=== PATIENT | male | born 1980 | race Caucasian/White ===

== ENCOUNTER 2017-03-24 18:25 | Emergency (ER) | payer BC ==
[2017-03-24 18:33] VITALS: BP 126/77; PULSE 60; TEMP 98.1; BMI 23.7
--- NOTE | 2017-03-24 19:18 | PDOC ---
History of Present Illness - General History Source: Patient Exam Limitations: No Limitations - History of Present Illness Initial Comments: 03/24/17 19:42 The patient is a 36 year old male, with no significant past medical history who presents to the emergency department with RLQ pain and right thigh pain since this morning. He notes his pain often radiates from his back into his right thigh and into his right tesiticle. He denies any recent sores on his scrotum, discharge, or redness. He denies any recent fevers, chills, headache or dizziness. He denies any recent nausea, vomit, diarrhea or constipation. He denies any recent chest pain or shortness of breath. He denies any recent dysuria, frequency, urgency or hematuria. PAST MEDICAL HISTORY: See HPI PAST SURGICAL HISTORY: No significant history. FAMILY HISTORY: No pertinent history. SOCIAL HISTORY: Patient lives with family and is employed. MEDICATIONS: Reviewed. ALLERGIES: As per nursing notes. ROS General: No fevers or chills, no weakness, no weight loss HEENT: No change in vision. No sore throat. No ear pain CardioVascular: No chest pain or shortness of breath Respiratory:No cough, or wheezing. Gastrointestinal: +RLQ pain. No nausea, vomiting, diarrhea or constipation. No rectal bleeding Genitourinary: No dysuria, hematuria, or frequency Musculoskeletal: +back pain. No joint or muscle pain or swelling Neurologic: No headache, vertigo, dizziness or loss of consciousness Psychiatric: No depression Skin: No rashes or easy bruising Endocrine: no increased thirst or abnormal weight change Allergic: no skin or latex allergy All other systems reviewed and normal Exam: General: Well-nourished well-developed individual, no acute distress HEENT: Throat: Normal, tonsils normal, no erythema or exudate Neck: Supple, no meningeal signs, no lymphadenopathy Eyes: Pupils equal reactive and round, extraocular motion intact Chest: Nontender to palpation Cardiac: S1-S2 normal, regular rate and rhythm, no murmurs rubs or gallops Respiratory: Lungs clear to auscultation bilateral Abdomen: +Tenderness on palpation of the left lower flank area. No tenderness on palpation of RLQ or suprapubic area. Soft, normal bowel sounds, nontender to palpation diffusely : Circumcised male. No penile discharge or lesion. No tenderress on palpation of testcile. No palpable masses of the scrotum. Pre-master reflex normal bilateral. Normal lie to the testices. No palpable hernia or mass in the inguinal area. Extremities: Warm, dry, no cyanosis, clubbing, or edema Skin: No rashes Neuro: Alert and oriented x3, nonfocal exam, grossly intact, normal gait Psych: Normal mood and affect <Kirby Chappell - Last Filed: 03/24/17 19:42> - General History Source: Patient Exam Limitations: No Limitations - History of Present Illness Initial Comments: 03/24/17 22:29 A portion of this note was documented by scribe services under my direction. I have reviewed the details of the note, within reason, and agree with the documentation. The case summary and management plan written by me. Assessment and plan: This is a 36-year-old male who has some right flank low back pain radiating to his right lower abdomen and right leg area. Patient had a complete workup including labs and urine all of which were unremarkable in addition to that patient had a CAT scan that was negative for any acute kidney stones or pathology. Patient was given Toradol with improvement of his symptoms. Discussed CAT scan reports with patient as well as lab work. It appears that his pain and most likely is secondary to a low back radiculopathy. Patient will follow-up with his primary care doctor with referral to a spine doctor if symptoms worsen or persist. <Daniel Cartagena I - Last Filed: 03/24/17 22:33> - General Chief Complaint: Pain Stated Complaint: RLQ, RT UPPER THIGH, BACK PAIN Time Seen by Provider: 03/24/17 19:10 Past History <Kirby Chappell - Last Filed: 03/24/17 19:42> - Past Medical History Other medical history: DENIES - Psycho/Social/Smoking Cessation Hx Anxiety: No Suicidal Ideation: No Smoking Status: No Smoking History: Never smoked Have you smoked in the past 12 months: No Number of Cigarettes Smoked Daily: 0 Information on smoking cessation initiated: No Hx Alcohol Use: No Drug/Substance Use Hx: No <Daniel Cartagena I - Last Filed: 03/24/17 22:33> - Past Medical History Allergies/Adverse Reactions: Allergies Allergy/AdvReac Type Severity Reaction Status Date / Time No Known Allergies Allergy Verified 03/24/17 18:28 Home Medications: Ambulatory Orders NK [No Known Home Medication] 03/24/17 *Physical Exam - Vital Signs Last Vital Signs Temp Pulse Resp BP Pulse Ox 98.1 F 60 18 126/77 99 03/24/17 18:25 03/24/17 18:25 03/24/17 18:25 03/24/17 18:25 03/24/17 18:25 <Kirby Chappell - Last Filed: 03/24/17 19:42> - Vital Signs Last Vital Signs Temp Pulse Resp BP Pulse Ox 98.1 F 60 18 126/77 99 03/24/17 18:25 03/24/17 18:25 03/24/17 18:25 03/24/17 18:25 03/24/17 18:25 <Daniel Cartagena I - Last Filed: 03/24/17 22:33> ED Treatment Course - LABORATORY CBC & Chemistry Diagram: 03/24/17 19:45 03/24/17 19:45 <Daniel Cartagena I - Last Filed: 03/24/17 22:33> *DC/Admit/Observation/Transfer - Attestations Scribe Attestion: 03/24/17 19:42 Documentation prepared by Kirby Chappell, acting as medical professionals for Daniel Cartagena MD. <Kirby Chappell - Last Filed: 03/24/17 19:42> - Discharge Dispostion Admit: No <Daniel Cartagena I - Last Filed: 03/24/17 22:33> Diagnosis at time of Disposition: Radicular low back pain - Discharge Dispostion Disposition: HOME Condition at time of disposition: Stable - Patient Instructions Additional Instructions: For the pain take ibuprofen 3 tablets 3 times a day with food don't take on an empty stomach or you can take Naprosyn 2 tablets twice a day with food. Take as needed in addition to that you can use heat or ice to the area depending upon which works the best. If symptoms worsen or are persistent for more than a week follow-up with your primary care doctor. Return to the emergency department immediately with ANY new, persistent or worsening symptoms. Continue any medications as previously prescribed by your physician. You should follow up with your primary doctor as soon as possible regarding today's emergency department visit. . Please make sure your doctor reviews the results of your emergency evaluation. Thank you for coming to the Emergency Department today for your care. It was a pleasure to see you today. Please note that your evaluation is INCOMPLETE until you follow-up with your doctor.
[2017-03-24] MEDS ORDERED: SODIUM CHLORIDE 1,000 ML IV ONE (19:35)
[2017-03-24] MEDS ORDERED: KETOROLAC TROMETHAMINE 30 MG/1 ML VIAL IVPUSH ONE (19:36)
[2017-03-24 19:54] LABS: BASOPHIL 0.9 % (0-2.0); EOSINOPHIL 1.3 % (0-4.5); MCH 30.9 pg (25.7-33.7); MCHC 34.8 g/dl (32.0-35.9); MEAN CELL VOLUME 88.6 fl (80-96); MEAN PLT VOLUME 8.4 fl (7.5-11.1); NEUTROPHILS 52.7 % (42.8-82.8); PLATELET COUNT 256 K/MM3 (134-434); RDW 11.8 % (11.9-15.9); WHITE BLOOD COUNT 6.8 K/mm3 (4.0-10.8)
[2017-03-24] MEDS ORDERED: KETOROLAC TROMETHAMINE 30 MG/1 ML VIAL ONE (19:54)
[2017-03-24 19:56] LABS: PH,URINE 5.5 (4.5-8); URINE APPEARANCE Clear; URINE BILIRUBIN Negative (NEGATIVE); URINE GLUCOSE (UA) Negative (NEGATIVE); URINE KETONE Negative (NEGATIVE); URINE NITRITE Negative (NEGATIVE); URINE PROTEIN Negative (NEGATIVE); URINE UROBILINOGEN 0.2 (0.2-1.0)
[2017-03-24 19:57] LABS: URINE BLOOD Trace-intact (NEGATIVE); URINE COLOR YELLOW; URINE LEUK ESTERASE TRACE (NEGATIVE)
[2017-03-24 20:09] LABS: ALBUMIN 4.3 g/dl (3.5-5.0); ALK PHOS 53 U/L (32-92); ANION GAP 5 (8-16); BILIRUBIN,TOTAL 0.4 mg/dl (0.2-1.0); CALCIUM 9.4 mg/dl (8.4-10.2); CO2 30 mmol/L (22-28); CREATININE 0.9 mg/dl (0.6-1.3); GLUCOSE,RANDOM 106 mg/dl (74-106); SGOT/AST 31 U/L (10-42); SGPT/ALT 35 U/L (10-40); TOT PROT 6.6 g/dl (6.4-8.3)
[2017-03-24 20:31] LABS: URINE RBC 0-2 /hpf (0-3); URINE WBC 0-1 (3-5)
== END 2017-03-24 22:35 | disposition home or self-care (01) ==
LOC: FER 18:25
PROC: 3E0333Z Introduction of Anti-inflammatory into Peripheral Vein, Percutaneous Approach (ICD-10-PCS; principal; 2017-03-24)
PROC: 3E0337Z Introduction of Electrolytic and Water Balance Substance into Peripheral Vein, Percutaneous Approach (ICD-10-PCS; 2017-03-24)
DX: M54.16 Radiculopathy, lumbar region (principal)
CPT/HCPCS: 36415; 74176-TC; 80053; 81003; 81015; 85025; 99282-25

== ENCOUNTER 2018-06-14 01:14 | Emergency (ER) | payer BC ==
[2018-06-14 01:23] VITALS: BP 131/57; PULSE 72; TEMP 98.2; BMI 24.5
--- NOTE | 2018-06-14 01:39 | PDOC ---
History of Present Illness - General Chief Complaint: Injury Stated Complaint: RT ANKLE PAIN Time Seen by Provider: 06/14/18 01:27 - History of Present Illness Initial Comments: This 38-year-old man without significant past medical history presents with right ankle/foot injury sustained approximately 2 hours prior to presentation. Patient states that he was playing soccer when he turned his right ankle. Medial portion of the ankle was stepped on by another player. Patient continued to play the game and noted that he had significant pain on weightbearing afterwards. Patient sustained second and third right metatarsal fractures 5 years ago secondary to trauma. No other history of fracture/ dislocation in this foot or ankle. Patient did not fall and did not have any other injury sustained tonight. No known ALLERGIES On no medications Past History - Past Medical History Allergies/Adverse Reactions: Allergies Allergy/AdvReac Type Severity Reaction Status Date / Time No Known Allergies Allergy Verified 03/24/17 18:28 Home Medications: Ambulatory Orders NK [No Known Home Medication] 03/24/17 COPD: No - Suicide/Smoking/Psychosocial Hx Smoking Status: No Smoking History: Never smoked Have you smoked in the past 12 months: No Number of Cigarettes Smoked Daily: 0 Hx Alcohol Use: No Drug/Substance Use Hx: No Review of Systems - Review of Systems Able to Perform ROS?: Yes Comments:: 12 point review of systems is negative except for what is noted in the history of present illness *Physical Exam - Vital Signs Last Vital Signs Temp Pulse Resp BP Pulse Ox 98.2 F 72 16 131/57 L 97 06/14/18 01:15 06/14/18 01:15 06/14/18 01:15 06/14/18 01:15 06/14/18 01:15 - Physical Exam Comments: GENERAL: Adult male, alert and oriented 3, in no acute distress HEAD: Normal with no signs of trauma. EXTREMITIES: Right lower extremity- ankle:moderate tenderness/mild edema area just anterior to the lateral malleolus; no ecchymosis or deformity seen No ligamentous instability present Foot: Mild tenderness/mild edema just lateral to the midline midfoot; no ecchymosis or deformity Distal extremity warm and dry with excellent capillary refill; dorsalis pedis pulse brisk with palpable midfoot Remainder of the extremity exam is normal NEUROLOGICAL: Cranial nerves II through XII grossly intact. Normal speech. No focal neurological deficits. MUSCULOSKELETAL: Back non-tender to palpation, no CVA tenderness SKIN: Warm, Dry, normal turgor, no rashes or lesions noted. Progress Note - Progress Note Progress Note: Right ankle/foot x-rays performed. Preliminary reading: No evidence of acute fracture/dislocation. Previous fracture of second and third metatarsal have healed well Medical Decision Making - Medical Decision Making Antonio wrap and removable ankle stirrup splint applied to the right ankle/foot. Crutches provided for the patient in crutch walking instruction given. Patient will be discharged with instructions to use ibuprofen/acetaminophen/ naproxen as needed for pain. He should elevate and ice the ankle/foot area as much as possible over the next 2 days. He should refrain from any strenuous running exercise, including soccer next 2-3 weeks. He has been seen by Dr. Pal in the past for his foot fracture; should follow-up with him if he has any persistent pain/swelling *DC/Admit/Observation/Transfer Diagnosis at time of Disposition: Ankle sprain Qualifiers: Encounter type: initial encounter Involved ligament of ankle: anterior talofibular ligament Laterality: right Qualified Code(s): S93.491A - Sprain of other ligament of right ankle, initial encounter Foot sprain Qualifiers: Encounter type: initial encounter Laterality: right Qualified Code(s): S93.601A - Unspecified sprain of right foot, initial encounter - Discharge Dispostion Disposition: HOME Condition at time of disposition: Stable - Referrals Referrals: ON STAFF,NOT [Primary Care Provider] - Masood Arce MD [Staff Physician] - 14 days - Patient Instructions Printed Discharge Instructions: Ankle Sprain Additional Instructions: Elevate/ice to ankle/foot as much as possible over the next 2 days Crutches for ambulation for the next 3 days Antonio wrap during the day for the next 5 days Ankle splint during the day for the next week Ibuprofen/acetaminophen/naproxen as needed for pain No strenuous athletic activity including running/soccer for the next 2-3 weeks If you have persistent pain/swelling, follow-up with orthopedics ( group) - Post Discharge Activity
== END 2018-06-14 02:21 | disposition home or self-care (01) ==
LOC: FER 01:14
PROC: 2W3QX1Z Immobilization of Right Lower Leg using Splint (ICD-10-PCS; principal; 2018-06-14)
DX: S93.491A Sprain of other ligament of right ankle, initial encounter (principal); S93.601A Unspecified sprain of right foot, initial encounter; X58.XXXA Exposure to other specified factors, initial encounter; Y93.66 Activity, soccer; Y92.322 Soccer field as the place of occurrence of the external cause
CPT/HCPCS: 73610-TC-RT-FY; 73630-TC-RT-FY; 99282-25

== ENCOUNTER 2020-05-13 09:50 | Emergency (ER) | payer BC ==
[2020-05-13] MEDS ORDERED: KETOROLAC TROMETHAMINE 30 MG/1 ML VIAL IM ONE (10:13)
--- NOTE | 2020-05-13 10:13 | PDOC ---
History of Present Illness - General Chief Complaint: Pain Stated Complaint: RT HIP, RT GROIN, BACK PAIN Time Seen by Provider: 05/13/20 10:07 - History of Present Illness Initial Comments: 05/13/20 10:15 40 male with no PMH presented here with right leg pain. Pain located on the right femur greater trochater. and right groin region, worsening with movement and after soccer. He has pain with abduction and addduction. Pain happened around 1 year, but today, he couldn't do soccer and that's why he is here. Denies N/V/fever/chill/chest pain/abdominal pain/ saddel anesthesia/neck pain/back pain. PMHX: none PSHX: none Meds:none Allergies: none Tob:none Etoh: none Rec drugs: none PCP: has one, but don't know the name. ROS GENERAL/CONSTITUTIONAL: No fever or chills. No weakness. HEAD, EYES, EARS, NOSE AND THROAT: No change in vision. No ear pain or discharge. No sore throat. CARDIOVASCULAR: No chest pain or shortness of breath RESPIRATORY: No cough, wheezing, or hemoptysis. GASTROINTESTINAL: No nausea, vomiting, diarrhea or constipation. GENITOURINARY: No dysuria, frequency, or change in urination. MUSCULOSKELETAL: +right sided leg pain. No neck or back pain. SKIN: No rash NEUROLOGIC: No headache, vertigo, loss of consciousness, or change in strength/sensation. ENDOCRINE: No increased thirst. No abnormal weight change HEMATOLOGIC/LYMPHATIC: No anemia, easy bleeding, or history of blood clots. ALLERGIC/IMMUNOLOGIC: No hives or skin allergy. PE GENERAL: Awake, alert, and fully oriented, in no acute distress HEAD: No signs of trauma, normocephalic, atraumatic EYES: PERRLA, EOMI, sclera anicteric, conjunctiva clear ENT: Auricles normal inspection, hearing grossly normal, nares patent, oropharynx clear without exudates. Moist mucosa NECK: Normal ROM, supple, no lymphadenopathy, JVD, or masses LUNGS: No distress, speaks full sentences, clear to auscultation bilaterally HEART: Regular rate and rhythm, normal S1 and S2, no murmurs, rubs or gallops, peripheral pulses normal and equal bilaterally. ABDOMEN: Soft, nontender, normoactive bowel sounds. No guarding, no rebound. No masses EXTREMITIES : Normal inspection, Normal range of motion, no edema. No clubbing or cyanosis. tenderness upon deep palpation on right femur greater trochanter. NEUROLOGICAL: Cranial nerves II through XII grossly intact. Normal speech, normal gait, no focal sensorimotor deficits SKIN: Warm, Dry, normal turgor, no rashes or lesions noted 05/13/20 10:19 Past History - Medical History Allergies/Adverse Reactions: Allergies Allergy/AdvReac Type Severity Reaction Status Date / Time No Known Allergies Allergy Verified 05/13/20 09:53 Home Medications: Ambulatory Orders NK [No Known Home Medication] 03/24/17 COPD: No - Psycho-Social/Smoking History Smoking Status: No Smoking History: Never smoked Have you smoked in the past 12 months: No Number of Cigarettes Smoked Daily: 0 Information on smoking cessation initiated: No - Substance Abuse Hx (Audit-C & DAST Scrn) How often the patient has a drink containing alcohol: Monthly or less Score: In Men: 4 or > Positive; In Women: 3 or > Positive: 1 Screen Result (Pos requires Nsg. Audit-10AR): Negative In the last yr the pt used illegal drug/Rx for NonMed reason: No Score: Yes response is considered Positive: 0 Screen Result (Positive result requires Nsg. DAST-10): Negative *Physical Exam - Vital Signs Last Vital Signs Temp Pulse Resp BP Pulse Ox 98.1 F 58 L 16 133/69 99 05/13/20 09:50 05/13/20 09:50 05/13/20 09:50 05/13/20 09:50 05/13/20 09:50 Medical Decision Making - Medical Decision Making 05/13/20 16:18 40 male with no PMH presented here with right leg pain Med: torado shot. Plan: Xray pelvic and hip, right femur. Result: negative for fx on the hip and pelvic, incidental finding on femur xray required CT scan. CT scan of the extremity is negative for fx. Patient most likely pull a muscle. Referred to ortho for further management. Pain should be controlled with OTC pain control such as tylenol or motrin. Discharge - Discharge Information Problems reviewed: Yes Clinical Impression/Diagnosis: Right leg pain, Hip pain Condition: Stable Disposition: HOME - Follow up/Referral Referrals: Pal,Alex, MD [Staff Physician] - - Patient Discharge Instructions Patient Printed Discharge Instructions: Help for Hip Pain Additional Instructions: You were seen in the ED for complaints of right leg pain. In the ED you were evaluated with physical exam and imaging. and xray of your hip. xrays are negative for any acute fracture. your injury is likley in the tendons and joint space surrounding the hip. you also had a CT scan of your leg which was normal. There does not appear to be an acute need for immediate hospitalization. You are advised to follow up with your orthopedic surgeon and Primary Care Physician within 1 week. You were given a referral to orthopedic surgeon Dr. Pal, call to schedule an appointment withing 1 - 2 weeks. You were given a shot of pain control. Return to the ED immediately if you experience worsening pain, or can't walk. for your pain you can take ibuprofen 400 mg every 8 hours as needed. take with food. you can also take tylenol 500 mg every 6 hours as needed. ice to reduce pain and inflamation. rest. - Post Discharge Activity
[2020-05-13] MEDS ORDERED: KETOROLAC TROMETHAMINE 30 MG/1 ML VIAL ONE (10:16)
[2020-05-13 10:18] VITALS: BP 133/69; PULSE 58; TEMP 98.1; BMI 24.3
--- NOTE | 2020-05-13 10:42 | PDOC ---
Attending Attestation - Resident Resident Name: Mykel Garcia - ED Attending Attestation I have performed the following: I have examined & evaluated the patient, The case was reviewed & discussed with the resident, I agree w/resident's findings & plan, Exceptions are as noted - HPI HPI: 05/13/20 10:39 40 yo M here with c/o 1 yr of intermittent right hip pain. today feels pain was so severe he was unable to go to his soccer game. has never seen an orthopedist or sports medicine for this complaints. did not take anything for pain prior to arrival. no f/c. no injury. describes pain as constant, worse over last 2 days, lateral right hip and anterior groin. worse with bending and walking. no knee or ankle pain. no other complaints. no prior hip surgery.pt denies dysuria, or hematuria. no flank pain 05/13/20 11:35 - Physicial Exam PE: 05/13/20 10:40 awake alert lungs clear bilat heart rrr no mrg abd soft nt rightr hip lateral ttp. FROM. no noted erythema or effusion. anterior ttp. no palp hernia. knee from nt ankle nt from. pelvis stable. - Medical Decision Making 05/13/20 10:41 40 yo male with right hip pain x one year. worse last two days. differential hip strain, bursitis, DJD, no sx of infection. plan xray r/o occult stress fx. nsaids. likley dc home if xray negative. fu orthopedics. nsaids, rest and ice. Discharge - Discharge Information Problems reviewed: Yes Clinical Impression/Diagnosis: Right leg pain, Hip pain Condition: Stable Disposition: HOME - Admission No - Follow up/Referral Referrals: Alex Pal MD [Staff Physician] - - Patient Discharge Instructions Patient Printed Discharge Instructions: Help for Hip Pain Additional Instructions: You were seen in the ED for complaints of right leg pain. In the ED you were evaluated with physical exam. and xray of your hip. xrays are negative for any acute fracture. your injury is likley in the tendons and joint space surrounding the hip. There does not appear to be an acute need for immediate hospitalization. You are advised to follow up with your orthopedic surgeon and Primary Care Physician within 1 week. You were given a referral to orthopedic surgeon Dr. Pal, call to schedule an appointment withing 1 - 2 weeks. You were given a shot of pain control. Return to the ED immediately if you experience worsening pain, or can't walk. for your pain you can take ibuprofen 400 mg every 8 hours as needed. take with food. you can also take tylenol 500 mg every 6 hours as needed. ice to reduce pain and inflamation. rest. - Post Discharge Activity
== END 2020-05-13 13:10 | disposition home or self-care (01) ==
LOC: FER 09:50
PROC: 3E0233Z Introduction of Anti-inflammatory into Muscle, Percutaneous Approach (ICD-10-PCS; principal; 2020-05-13)
DX: M79.604 Pain in right leg (principal); M25.551 Pain in right hip
CPT/HCPCS: 73523-TC-FY; 73552-TC-RT-FY; 73700-TC-RT; 81003; 99285-25

== ENCOUNTER 2021-05-18 09:49 | Emergency (ER) | payer BC ==
[2021-05-18 10:13] VITALS: BP 126/68; PULSE 60; TEMP 97.7; BMI 25.8
[2021-05-18] MEDS ORDERED: KETOROLAC TROMETHAMINE 15 MG/ML VIAL IM ONE (10:13)
[2021-05-18] MEDS ORDERED: KETOROLAC TROMETHAMINE 15 MG/ML VIAL ONE (10:15)
== END 2021-05-18 11:35 | disposition home or self-care (01) ==
LOC: FER 09:49
PROC: 3E0233Z Introduction of Anti-inflammatory into Muscle, Percutaneous Approach (ICD-10-PCS; principal; 2021-05-18)
DX: M25.512 Pain in left shoulder (principal)
CPT/HCPCS: 73030-TC-LT-FY; 73070-TC-LT-FY; 99284-25

== ENCOUNTER 2021-11-17 18:55 | Emergency (ER) | payer BC ==
[2021-11-17 19:06] VITALS: BP 116/66; PULSE 56; TEMP 98.5; BMI 26.5
[2021-11-17] MEDS ORDERED: ACETAMINOPHEN 500 MG TABLET (FP) PO ONE (20:05)
[2021-11-17] MEDS ORDERED: LIDOCAINE 5% TOPICAL PATCH TP ONE (20:06)
[2021-11-17] MEDS ORDERED: morphine SULFATE IMMEDIATE RELEASE 30 MG TAB PO ONE (20:09)
[2021-11-17] MEDS ORDERED: ACETAMINOPHEN 500 MG TABLET (FP) ONE (20:10)
[2021-11-17] MEDS ORDERED: LIDOCAINE 5% TOPICAL PATCH ONE (20:10)
[2021-11-17] MEDS ORDERED: LIDOCAINE PATCH REMOVAL MC SCH (22:00)
== END 2021-11-17 21:38 | disposition home or self-care (01) ==
LOC: FER 18:55
DX: R07.89 Other chest pain (principal)
CPT/HCPCS: 71101-TC-LT-FY; 87651; 93005; 99284-25

== ENCOUNTER 2023-09-14 09:54 | Emergency (ER) | payer BC ==
[2023-09-14 10:03] VITALS: BP 109/76; PULSE 79; RESP 18; TEMP 99.3; BMI 24.8
== END 2023-09-14 10:15 | disposition home or self-care (01) ==
LOC: FER 09:54
DX: R50.9 Fever, unspecified (principal); R05.9 Cough, unspecified; B34.9 Viral infection, unspecified; Z20.822 Contact with and (suspected) exposure to COVID-19
CPT/HCPCS: 0241U-QW; 99283-25